=== PATIENT | male | born 1950 | race Caucasian/White ===

== ENCOUNTER 2016-10-24 19:02 | Observation (INO) | payer MEDICARE, OTHER ==
[~2016-10-24] VITALS: Ht 170.2 cm; Wt 65.9 kg
[2016-10-24] MEDS ORDERED: SODIUM CHLORIDE FLUSH 10 ML SYR IV PRN (19:10)
[2016-10-24] MEDS ORDERED: SODIUM CHLORIDE FLUSH 3 ML SYR IV PRN (19:10)
[2016-10-24 19:59] LABS: MEAN CORPUSCULAR VOLUME 94 FL (80-100); MEAN PLATELET VOLUME 9.9 FL (6.0-9.5); PLATELET COUNT 240 10^3uL (150-450); WHITE BLOOD COUNT 7.29 10^3uL (4.0-11.0)
[2016-10-24] MEDS ORDERED: NS IV 500 ML 500 ML IV SCH (20:05)
[2016-10-24 20:06] LABS: ALBUMIN 4.2 g/dL (3.4-5.0); ALKALINE PHOSPHATASE 158 U/L (38-126); ANION GAP 21.4 MEQ/L (3-15); BUN/CREATININE RATIO 11 (10-20); CALCULATED IONIZED CALCIUM 4.3 mg/dL (3.8-4.6); CREATINE KINASE 83 U/L (55-170); TOTAL PROTEIN 7.1 g/dL (6.4-8.5)
[2016-10-24] MEDS ORDERED: ASPIRIN 81 MG CHEW (LOW-DOSE) ONE (20:10)
[2016-10-24 20:14] LABS: MEAN CORPUSCULAR HEMOGLOBIN 33.4 PG (26.0-34.0); MEAN CORPUSCULAR HGB CONC 35.5 g/dL (31.0-37.0)
[2016-10-24] MEDS ORDERED: ASPIRIN 81 MG CHEW (LOW-DOSE) PO ONE (20:15)
[2016-10-24 20:17] LABS: BAND NEUTROPHILS % 1 % (0-6); EOSINOPHILS % 1 % (0-4); LYMPHOCYTES # 1.2 #; MONOCYTES # 1.2 #; MONOCYTES % 17 % (3-11); RBC MORPH NORMAL (NORMAL); SEGMENTED NEUTROPHILS % 63 % (51-67); TOTAL CELLS COUNTED 100
[2016-10-24] MEDS ORDERED: AMLO10TA82 PO (20:20)
[2016-10-24] MEDS ORDERED: LORA10TA76 PO (20:20)
[2016-10-24] MEDS ORDERED: NADO40TA PO (20:20)
[2016-10-24] MEDS ORDERED: LOSA100T8 PO (20:20)
--- NOTE | 2016-10-24 20:35 | NUR ---
PT SITTING UP IN BED ALERT AND VISITING WITH HIS FAMILY. EATING MEAL TRAY W/O ANY DIFFICULTY
--- NOTE | 2016-10-24 20:36 | Diagnostic Imaging Report ---
INDICATION: Weakness and syncope. FINDINGS: The heart size, mediastinal configuration, and pulmonary vascularity are within normal limits. There is no pleural effusion, pneumothorax, or pneumonia. The osseous structures are unremarkable. IMPRESSION: No acute cardiopulmonary abnormality. Dictated by: Dictated on workstation # [id number]
[2016-10-24] MEDS ORDERED: ACETAMINOPHEN 325 MG TAB (TYLENOL) PO PRN (21:10)
[2016-10-24] MEDS ORDERED: POLYETHYLENE GLYCOL 17 GM (MIRALAX) PACKET PO PRN (21:10)
[2016-10-24] MEDS ORDERED: KETOROLAC 15 MG/ML (TORADOL) 1 ML VIAL IV PRN (21:10)
[2016-10-24] MEDS ORDERED: ONDANSETRON 2 MG/ML (Z0FRAN) 2 ML VIAL IV PRN (21:10)
--- NOTE | 2016-10-24 21:21 | NUR ---
NOTIFIED CHAIR MAKER OF ADMIT
--- NOTE | 2016-10-24 21:34 | NUR ---
Admitted to room. Oriented to room and hospital procedures.
[2016-10-24 21:40] VITALS: BP 99/63
--- NOTE | 2016-10-24 22:30 | NUR ---
Patient and family spoke with tele doc. did assessment and orders obtained. Family left for the night.
--- NOTE | 2016-10-24 23:31 | History and Physical (E) ---
History & Physical PCP: Dr. Oscar CC: syncope HPI: The pt is 66 yo healthy male who drove 9 hours from [place] yesterday to attend a family picnic today. He states he was out in the sun all day at a car show and sat down to eat at the picnic when he "passed out". His daughter in law, a physician, witnessed this and reports that he was unconcious for about 30 seconds. mildly post confused after which. Prior to the event he c/o lightheadedness and diaphoresis. He daughter in law believes that he got dehydrated thus accounting for the ARF but the LFT's are chronic and has been extensively worked up in the past. During my inteview the pt is without any symptoms. PMH: HTN ( takes meds at night not this morning), GERD, dyslipidemia- statin intolerent. PSH: chalino olivas 2014, ALLERGIES: Please see list at end of report. HOME MEDICATIONS: Please see list at end of report. FH: Father- of PE 50's SH: no ETOH or Tob, retired, . ROS CONSTITUTION: Denies weight loss or gain. Denies fever or chills. CV: No chest pain, palpitations. PULM: No cough, shortness of breath, difficulty breathing. GI: No nausea, vomiting, constipation, or diarrhea. No blood in stool. MS: No new muscle or joint aches and pains. NEURO: No numbness or tingling. No weakness. INTEG: No rashes, lesions, or sores. PSYCH: No change in mood or behavior. OBJECTIVE GEN: Awake, alert, oriented, NAD CV: RRR S1 S2 normal with mild murmur LUNGS: CTA B ABD: Soft, NT/ND with normal bowel sounds. INTEG: No rash. NEURO: No focal motor neuro deficit. Weight: 65.9 kg LABS: Cr. 2.1, elevated LFT's, ASSESSMENT: 1. Syncope 2. ARF 3. Hypotension 4. GERD 5. Hepatitis PLAN 1. Will place on telemetry, repeat troponins to r/o cardiac causes, obtain orthostatic vitals, after 1.5 liters of NS pt still hasn't voided, will continue with aggressive IV hydration, hold home meds, repeat COMP in am, PPI ordered, hep panel ordered, monitor vitals closely Allergies/Home Medications Allergies: Coded Allergies: No Known Allergies (Verified Allergy, Unknown, 10/24/16) Reported Home Medications Scheduled Amlodipine Besylate (Amlodipine Besylate) 10 MG PO DAILY (Reported) Loratadine (Claritin) 10 MG PO DAILY (Reported) Losartan Potassium (Losartan Potassium) 100 MG PO DAILY (Reported) Nadolol (Nadolol) 40 MG PO BID (Reported) Copies to: End of Report . GERMAN GODINEZ MD October 24, 2016 23:31
[2016-10-25 01:08] VITALS: BP 99/63
[2016-10-25 03:00] VITALS: BP_SYST 112; BP_SYST 129; BP_SYST 138; BP_DIAS 69; BP_DIAS 83; BP_DIAS 84
--- NOTE | 2016-10-25 06:00 | NUR ---
Patient rested at long intervals tonight. Denies chest soreness or dizziness. Patient up to the bathroom with stand by assist. No discomforts or lightheadedness noted. 3am Troponin normal. IV NS patent at 125 cc an hour. No discomforts voiced. Voiding without difficulty. Urine dark concentrated [place]. Anxious to go home today.
[2016-10-25 06:10] LABS: MEAN CORPUSCULAR HGB CONC 34.9 g/dL (31.0-37.0); MEAN CORPUSCULAR VOLUME 95 FL (80-100); MEAN PLATELET VOLUME 10.2 FL (6.0-9.5); PLATELET COUNT 195 10^3uL (150-450); WHITE BLOOD COUNT 4.71 10^3uL (4.0-11.0)
[2016-10-25 06:21] LABS: ALBUMIN 3.1 g/dL (3.4-5.0); ANION GAP 16.8 MEQ/L (3-15); CALCULATED IONIZED CALCIUM 4.5 mg/dL (3.8-4.6); TOTAL PROTEIN 5.4 g/dL (6.4-8.5)
[2016-10-25 06:27] LABS: MEAN CORPUSCULAR HEMOGLOBIN 33.3 PG (26.0-34.0)
[2016-10-25 06:43] LABS: BAND NEUTROPHILS % 1 % (0-6); EOSINOPHILS % 3 % (0-4); LYMPHOCYTES # 1.1 #; MONOCYTES # 0.6 #; MONOCYTES % 14 % (3-11); RBC MORPH NORMAL (NORMAL); SEGMENTED NEUTROPHILS % 58 % (51-67); TOTAL CELLS COUNTED 100
[2016-10-25] MEDS ORDERED: PANTOPRAZOLE 40 MG (PROTONIX) TAB PO SCH (07:00)
[2016-10-25 07:22] VITALS: BP 102/73
--- NOTE | 2016-10-25 10:17 | NUR ---
Pt rests in bed, agrees to ambulate with staff- has been 1 full lap already- no dizziness, light headedness or syncope. IVF infusing as ordered. Pt calls approp for assist.
[2016-10-25] MEDS ORDERED: OMEP20TA33 PO (10:53)
[2016-10-25] MEDS ORDERED: RANI150T15 PO (10:53)
[2016-10-25] MEDS ORDERED: MULT-955 PO (10:53)
[2016-10-25] MEDS ORDERED: SILD100T PO (10:53)
--- NOTE | 2016-10-25 10:54 | NUR ---
MED REC COMPLETE--current med list obtained from external med history application and patient interview.
--- NOTE | 2016-10-25 11:39 | NUR ---
Pt ambulated halls again with . Gait is steady and pt denies dizziness or light headedness. Family is at bedside.
--- NOTE | 2016-10-25 14:24 | Discharge Instructions (E) ---
Discharge Instructions Instructions Resume home medications. Drink more water when outside for an extended period. Eat regularly and don't skip meals. Activity Instructions Up as tolerated Doctor's Appointment Call your primary care provider for an appointment when you get home. Discharge Diet: Heart Healthy Chucho Rubalcava MD October 25, 2016 14:24
[2016-10-25 14:26] VITALS: BP 125/71
--- NOTE | 2016-10-25 14:35 | Discharge Summary (E FT) ---
Discharge Summary (E FT) Admit Date October 24, 2016 at 21:06 Discharge Date Admitting Provider Skyler Bolton MD Primary Care Provider Attending Provider Skyler Bolton MD Consulting Provider Hospital Course Summary The pt is 66 yo healthy male who drove 9 hours from [place] 2 days ago to attend a local car show yesterday. He states he was out in the sun all day at the car show and sat down to eat at the picnic when he "passed out". His daughter in law, a physician, witnessed this and reports that he was unconscious for about 30 seconds then mildly confused after. Prior to the event he c/o lightheadedness and diaphoresis. His daughter in law believes that he got dehydrated thus accounting for the ARF but the LFT's are chronic and has been extensively worked up in the past. While here, pt was given IVF and did well. He is voiding appropriately and denies any lightheadedness or dizziness when he gets up. Telemetry has shown occasional PACs, but nothing sustained. At this time, pt has no c/o. PMH: HTN, GERD, dyslipidemia- statin intolerent. PSH: chalino olivas 2014, ALLERGIES: Please see list at end of report. HOME MEDICATIONS: Please see list at end of report. FH: Father- of PE 50's SH: no ETOH or Tob, retired, . ROS CONSTITUTION: Denies weight loss or gain. Denies fever or chills. CV: No chest pain, palpitations. PULM: No cough, shortness of breath, difficulty breathing. GI: No nausea, vomiting, constipation, or diarrhea. No blood in stool. MS: No new muscle or joint aches and pains. NEURO: No numbness or tingling. No weakness. INTEG: No rashes, lesions, or sores. PSYCH: No change in mood or behavior. OBJECTIVE GEN: Awake, alert, oriented, NAD CV: RRR S1 S2 normal with mild murmur LUNGS: CTA B ABD: Soft, NT/ND with normal bowel sounds. INTEG: No rash. NEURO: No focal motor neuro deficit. LABS: BMP Last 24 Hrs 10/24/16 19:30 10/25/16 05:05 Laboratory Results Past 24 Hrs 10/24/16 19:30: Absolute Band Neutrophils 0.1, Activated Partial Thromboplast Time 24.5, Alanine Aminotransferase (ALT/SGPT) 170, Albumin 4.2, Albumin/Globulin Ratio 1.448, Alkaline Phosphatase 158, Anion Gap 21.4, Aspartate Amino Transf (AST/ SGOT) 253, BUN/Creatinine Ratio 11, Band Neutrophils % 1, Basophils # (Auto) , Basophils # (Manual) 0.1, Basophils % (Manual) 1, Basophils (%) (Auto) , Blood Morphology Comment Normal, Blood Urea Nitrogen 24, Calcium Level 9.8, Calcium/ Ionized Calcium Ratio 4.3, Calculated Osmolality 271, Carbon Dioxide Level 19, Chloride Level 102, Creatine Kinase MB 1.0, Creatinine 2.14, Differential Total Cells Counted 100, Eosinophils # 0.1, Eosinophils # (Auto) , Eosinophils % ( Manual) 1, Eosinophils (%) (Auto) , Estimat Glomerular Filtration Rate 37.6, Estimated GFR (Non- 31.1, Glucose Level 98, Hematocrit 44.80, Hemoglobin 15.9, Hepatitis A IgM Antibody [Pending], Hepatitis B Core IgM Antibody [Pending], Hepatitis B Surface Antigen [Pending], Hepatitis C Antibody [Pending], Lymphocytes # 1.2, Lymphocytes # (Auto) , Lymphocytes % (Manual) 17, Lymphocytes (%) (Auto) , Mean Corpuscular Hemoglobin 33.4, Mean Corpuscular Hemoglobin Concent 35.5, Mean Corpuscular Volume 94, Mean Platelet Volume 9.9, Monocytes # 1.2, Monocytes # (Auto) , Monocytes % (Manual) 17, Monocytes (%) ( Auto) , Monoscreen Negative, UI-Dgt-K-Type Natriuretic Peptide 140, Neutrophils # 4.6, Neutrophils # (Auto) , Neutrophils (%) (Auto) , Platelet Count 240, Potassium Level 4.5, Prolactin [Pending], Prothromb Time International Ratio 0.9 , Prothrombin Time 10.4, Red Blood Count 4.76, Red Cell Distribution Width 11.9 , Segmented Neutrophils % 63, Serum Alcohol 69.0, Sodium Level 138, Thyroid Stimulating Hormone (TSH) 4.92, Total Bilirubin 1.6, Total Creatine Kinase 83, Total Protein 7.1, Troponin I < 0.012, White Blood Count 7.29 10/25/16 03:10: Troponin I < 0.012 10/25/16 05:05: Absolute Band Neutrophils 0.0, Alanine Aminotransferase (ALT/SGPT) 196, Albumin 3.1, Albumin/Globulin Ratio 1.347, Alkaline Phosphatase 138, Anion Gap 16.8, Aspartate Amino Transf (AST/SGOT) 243, BUN/Creatinine Ratio 17, Band Neutrophils % 1, Basophils # (Auto) , Basophils # (Manual) 0.0, Basophils % ( Manual) 0, Basophils (%) (Auto) , Blood Morphology Comment Normal, Blood Urea Nitrogen 21, Calcium Level 8.9, Calcium/Ionized Calcium Ratio 4.5, Calculated Osmolality 270, Carbon Dioxide Level 21, Chloride Level 107, Creatinine 1.23, Differential Total Cells Counted 100, Eosinophils # 0.1, Eosinophils # (Auto) , Eosinophils % (Manual) 3, Eosinophils (%) (Auto) , Estimat Glomerular Filtration Rate 71.2, Estimated GFR (Non- 58.9, Glucose Level 68 , Hematocrit 39.80, Hemoglobin 13.9, Lymphocytes # 1.1, Lymphocytes # (Auto) , Lymphocytes % (Manual) 24, Lymphocytes (%) (Auto) , Mean Corpuscular Hemoglobin 33.3, Mean Corpuscular Hemoglobin Concent 34.9, Mean Corpuscular Volume 95, Mean Platelet Volume 10.2, Monocytes # 0.6, Monocytes # (Auto) , Monocytes % ( Manual) 14, Monocytes (%) (Auto) , Neutrophils # 2.7, Neutrophils # (Auto) , Neutrophils (%) (Auto) , Platelet Count 195, Potassium Level 4.7, Red Blood Count 4.18, Red Cell Distribution Width 11.9, Segmented Neutrophils % 58, Sodium Level 139, Total Bilirubin 1.0, Total Protein 5.4, White Blood Count 4.71 10/25/16 08:50: Troponin I < 0.012 ASSESSMENT: 1. Syncope - Resolved. Dehydration and low blood sugar likely contributed to the cause of this. Feeling better after IVF. 2. ARF - Resolved with IVF. 3. Hypotension - Resolved with IVF. 4. GERD - Continue home meds prn. 5. Elevated LFTs - Hepatitis panel pending. Will get results to PCP when they are back. Discharge Disposition D/C home today. He will stay with family tonight then head back to [place] tomorrow. He needs to call his PCP tomorrow for an appointment this week. Follow up Instructions Resume home medications. Drink more water when outside for an extended period. Eat regularly and don't skip meals. Copies to: End of Report . Chucho Rubalcava MD October 25, 2016 14:35
--- NOTE | 2016-10-25 14:45 | NUR ---
Discharge instructions reviewed with patient. Verbalizes understanding and signed discharge paperwork. Pt and in room and he is dressing for dismissal. IV dc'd to LFA- tip intact, site without redness/swelling. Trinity Beth RN and this nurse came to room with Patient Portal paperwork- set up with wifes email at patients request because he does not have an email to use for portal.
--- NOTE | 2016-10-25 15:21 | NUR ---
Pt dismissed via ambulation with to son and daughter in laws house- his belongings are with him. Pt states they will stay tonight at [facility] then leave for [place] tomorrow AM.
[2016-10-25 16:57] LABS: HEPATITIS A ANTIBODY IGM Negative; HEPATITIS B CORE ABY IGM Negative; HEPATITIS B SURFACE ANTIGEN C Negative
--- NOTE | 2016-10-26 06:02 | Diagnostic Imaging Report ---
PROCEDURE: CT head without contrast. TECHNIQUE: Multiple contiguous axial images were obtained through the brain without the use of intravenous contrast. INDICATION: Syncope. FINDINGS: Ventricles and sulci are prominent with asymmetric prominence of the right lateral ventricle. There is no evidence of hemorrhage. No acute infarct is identified by CT imaging. Calvarium is intact. There is mild mural thickening seen within the visualized ethmoid air cells with mural thickening also noted in the visualized portion of the left maxillary sinus. IMPRESSION: Probable atrophy within the brain with asymmetric prominence of right lateral ventricle. There is no evidence of acute infarct. If indicated, MRI may provide further characterization. Dictated by: Dictated on workstation # [id number]
== END 2016-10-25 15:21 | disposition home or self-care (01) ==
LOC: ED 19:16 → MED/SURG 21:06 → UNDOADMOB 21:06 → UNDODISOB 10-25 15:21
PROVIDERS: ADMIT Internal Medicine; ATTEND Internal Medicine
DX: R55 Syncope and collapse (principal); N17.9 Acute kidney failure, unspecified; E86.0 Dehydration; I95.9 Hypotension, unspecified; R79.89 Other specified abnormal findings of blood chemistry; I10 Essential (primary) hypertension; K21.9 Gastro-esophageal reflux disease without esophagitis; E78.5 Hyperlipidemia, unspecified
CPT/HCPCS: 36415; 51798; 70450; 71010; 80053; 80074; 82550; 82553; 83880; 84146; 84443; 84484; 85025; 85610; 85730; 86308; 93005; 96360; 96361; 99285; A9270; G0378; G0480; J7030; J7040; 80320; 99218